=== PATIENT | male | born 1985 | race Caucasian/White ===

== ENCOUNTER 2023-06-30 02:54 | Emergency (ER) | payer SELFPAY ==
[2023-06-30 02:56] VITALS: BP 152/101; PULSE 80; RESP 20; O2SAT 95
--- NOTE | 2023-06-30 03:04 | CTR_ITS ---
PROCEDURE INFORMATION: Exam: CT Head Without Contrast Exam date and time: 06/30/2023 3:21 AM Age: 38 years old Clinical indication: Injury or trauma; Blunt trauma (contusions or hematomas); Patient HX: EMS arrival from bar for fall. Patient fell face first striking head onto concrete floor. Patient acutely intoxicated, non verbal, and minimally responsive. ; Additional info: Fall/ams TECHNIQUE: Imaging protocol: Computed tomography of the head without contrast. Radiation optimization: All CT scans at this facility use at least one of these dose optimization techniques: automated exposure control; mA and/or kV adjustment per patient size (includes targeted exams where dose is matched to clinical indication); or iterative reconstruction. REPORTING DATA: Count of CT and Cardiac NM exams in prior 12 months: This patient has received 0 known CTs and 0 known cardiac nuclear medicine studies in the 12 months prior to the current study. COMPARISON: No relevant prior studies available. RADIATION DOSE METRICS: Total DLP (mGy-cm): 1117.59 FINDINGS: Brain: There is no evidence of acute parenchymal hemorrhage, extra-axial collection, or acute infarction. There is no mass effect, midline shift, or downward herniation. There is a prominent cisterna magna noted. Cerebral ventricles: No ventriculomegaly. Paranasal sinuses: There is mild paranasal sinus mucosal thickening. Mastoid air cells: Visualized mastoid air cells are well aerated. Bones/joints: Unremarkable. No acute fracture. Soft tissues: Unremarkable. CT/CT head wo con* [id number] IMPRESSION: No evidence of acute intracranial process.
--- NOTE | 2023-06-30 03:04 | CTR_ITS ---
PROCEDURE INFORMATION: Exam: CT Cervical Spine Without Contrast Exam date and time: 06/30/2023 3:24 AM Age: 38 years old Clinical indication: Injury or trauma; Blunt trauma; Patient HX: EMS arrival from bar for fall. Patient fell face first striking head onto concrete floor. Patient acutely intoxicated, non verbal, and minimally responsive. ; Additional info: Fall/ams TECHNIQUE: Imaging protocol: Computed tomography of the cervical spine without contrast. Radiation optimization: All CT scans at this facility use at least one of these dose optimization techniques: automated exposure control; mA and/or kV adjustment per patient size (includes targeted exams where dose is matched to clinical indication); or iterative reconstruction. REPORTING DATA: Count of CT and Cardiac NM exams in prior 12 months: This patient has received 0 known CTs and 0 known cardiac nuclear medicine studies in the 12 months prior to the current study. COMPARISON: CT head wo con* [id number] 06/30/2023 3:21 AM RADIATION DOSE METRICS: Total DLP (mGy-cm): 536.77 FINDINGS: Bones/joints: No acute fracture. Normal alignment. There is minimal multilevel spondylosis. C2-C3: No significant disc bulge or herniation. No severe spinal canal stenosis. No significant neural foraminal narrowing. C3-C4: No significant disc bulge or herniation. No severe spinal canal stenosis. No significant neural foraminal narrowing. C4-C5: No significant disc bulge or herniation. No severe spinal canal stenosis. No significant neural foraminal narrowing. C5-C6: No significant disc bulge or herniation. No severe spinal canal stenosis. No significant neural foraminal narrowing. C6-C7: No significant disc bulge or herniation. No severe spinal canal stenosis. No significant neural foraminal narrowing. C7-T1: No significant disc bulge or herniation. No severe spinal canal stenosis. No significant neural foraminal narrowing. Lungs: Lung apices are normal. Soft tissues: Unremarkable. CT/CT cervical spin wo con* [id number] IMPRESSION: No acute findings.
[2023-06-30 03:26] LABS: Basophils # 0.1 10^3/uL (0.0-0.1); Basophils % 0.6 %; Eosinophils # 0.2 10^3/uL (0.0-0.8); Eosinophils % 2.3 %; Hematocrit 48.9 % (37-53); Mean Corpuscular HGB Conc 33.9 g/dL (30-55); Mean Corpuscular Hemoglobin 31.2 pg (27-33); Mean Corpuscular Volume 91.9 fl (82-101); Mean Platelet Volume 11.8 fL (7.4-10.4); Monocytes # 1.2 10^3/uL (0.2-0.9); Monocytes % 14.5 %; Neutrophils # 4.58 10^3/uL (1.8-7.7); Neutrophils % 57.2 %; Nucleated Red Blood Cells % 0 %; Platelet Count 314 10^3/cmm (157-399); Red Blood Count 5.32 10^6/uL (3.85-5.65); Red Cell Distribution Width 13.2 % (12.1-15.1)
[2023-06-30 03:34] VITALS: BP 115/72; PULSE 64; RESP 16; O2SAT 94
[2023-06-30 03:51] LABS: Alanine Aminotransferase 31 U/L (0-41); Albumin Level 4.8 g/dL (3.5-5.2); Alkaline Phosphatase 111 U/L (40-130); Anion Gap 15.3 (5-19); Aspartate Amino Transferase 38 U/L (0-40); Blood Urea Nitrogen 8 mg/dL (6-20); Calcium 9.3 mg/dL (8.5-10.5); Carbon Dioxide 29 mmol/L (22-29); Chloride 94 mmol/L (98-107); Globulin 3.2 g/dL (1.3-4.6); Glomerular Filtration Rate 107.1 mL/min (90-130); Glucose 116 mg/dL (65-115); Osmolality Calculated 277 mOsm/kg (285-295); Potassium 4.3 mmol/L (3.5-5.1); Sodium 134 mmol/L (136-145); Total Bilirubin 1.1 mg/dL (0.15-1.2)
[2023-06-30 03:54] LABS: Alcohol Level 415 mg/dL (0-10)
[2023-06-30 04:48] VITALS: BP 141/96; RESP 16; O2SAT 98
--- NOTE | 2023-06-30 05:20 | W.ED.ALCOHOL ---
Documented by User: Karlo Cervantes MD 07/25/23 07:42 HPI - Alcohol General: Chief Complaint: Alcohol Stated Complaint: fall Time Seen by Provider: 06/30/23 03:04 History of Present Illness: 38-year-old male presents to the emergency department via EMS personnel. EMS personnel state the patient was at a local drinking establishment when he started to leave he tripped over a rug by the front door falling out the door and onto the concrete pad hitting his head. He is extremely intoxicated and responsive to noxious stimuli only. Review of Systems General: Reports: ROS unobtainable due to medical condition and ROS unobtainable due to mental status Physical Exam Narrative: EXAM NARRATIVE: Constitutional: the patient appears well nourished and of normal development. Vital signs as documented. No acute distress at present. Responsive to noxious stimuli only Head, eyes, ears, nose, mouth, throat: Normocephalic, atraumatic. Pupils-equal, round, reactive to light. No scleral icterus. Normal-appearing external ears. Normal appearing nasal turbinates, no drainage. No obvious oral lesions, posterior oropharynx without erythema or exudates. Neck: Supple, trachea is midline, no lymphadenopathy, no jugular venous distension, thyromegaly, or carotid bruits. Carotid upstrokes are brisk bilaterally. Lungs: clear to auscultation to all lung smith. Symmetrical rise and fall of chest, no obvious signs of increased work of breathing at present. Cardiac: Regular rate and rhythm, positive S1, S2. No murmurs, rubs or gallops that I can appreciate Abdomen: Soft, non-tender to palpation, normal active bowel sounds to all quadrants. No palpable masses, no organomegaly and abdominal bruits. Extremities: 2+ pulses in the upper extremities that are equal bilaterally, 2+ pulses in the lower extremities that are equal bilaterally. Non-edematous. Moves all extremities well, sensation to all extremities are noted. Skin: Warm, dry, intact. Course Vital Signs: Vital signs: Vital Signs Pulse Rate 64 06/30/23 03:34 Respiratory Rate 16 06/30/23 06:53 Blood Pressure 121/85 06/30/23 06:53 Pulse Oximetry 95 06/30/23 06:53 Oxygen Delivery Me thod Room Air 06/30/23 03:34 MDM - Alcohol Medical Decision Making Physical exam completed and documented, I will obtain a CBC, CMP alcohol level provide him IV fluid rehydration as well as a banana bag. Lab Data I reviewed the patient's lab results. 06/30/23 03:00 06/30/23 03:00 Radiology Impressions Cervical Spine CT 06/30/23 03:04 IMPRESSION: No acute findings. Head CT 06/30/23 03:04 IMPRESSION: No evidence of acute intracranial process. Laboratory Results WBC 8.00 10^3/uL (3.29-11.43) 06/30/23 03:00 RBC 5.32 10^6/uL (3.85-5.65) 06/30/23 03:00 Hgb 16.60 g/dL (11.27-16.99) 06/30/23 03:00 Hct 48.9 % (37-53) 06/30/23 03:00 MCV 91.9 fl (82-101) 06/30/23 03:00 MCH 31.2 pg (27-33) 06/30/23 03:00 MCHC 33.9 g/dL (30-55) 06/30/23 03:00 RDW 13.2 % (12.1-15.1) 06/30/23 03:00 Plt Count 314 10^3/cmm (157-399) 06/30/23 03:00 MPV 11.8 fL (7.4-10.4) H 06/30/23 03:00 Neut % (Auto) 57.2 % 06/30/23 03:00 Lymph % (Auto) 25.0 % 06/30/23 03:00 [place] % (Auto) 14.5 % 06/30/23 03:00 Eos % (Auto) 2.3 % 06/30/23 03:00 Baso % (Auto) 0.6 % 06/30/23 03:00 Neut # (Auto) 4.58 10^3/uL (1.8-7.7) 06/30/23 03:00 Lymph # (Auto) 2.0 10^3/uL (0.8-4.8) 06/30/23 03:00 [place] # (Auto) 1.2 10^3/uL (0.2-0.9) H 06/30/23 03:00 Eos # (Auto) 0.2 10^3/uL (0.0-0.8) 06/30/23 03:00 Baso # (Auto) 0.1 10^3/uL (0.0-0.1) 06/30/23 03:00 Nucleated RBC % (auto) 0 % 06/30/23 03:00 Nucleated RBCs # 0.0 /100WBC 06/30/23 03:00 Sodium 134 mmol/L (136-145) L 06/30/23 03:00 Potassium 4.3 mmol/L (3.5-5.1) 06/30/23 03:00 Chloride 94 mmol/L (98-107) L 06/30/23 03:00 Carbon Dioxide 29 mmol/L (22-29) 06/30/23 03:00 Anion Gap 15.3 (5-19) 06/30/23 03:00 BUN 8 mg/dL (6-20) 06/30/23 03:00 Creatinine 0.8 mg/dL (0.7-1.2) 06/30/23 03:00 GFR Calculation 107.1 mL/min (90-130) 06/30/23 03:00 Glucose 116 mg/dL (65-115) H 06/30/23 03:00 Calculated Osmolality 277 mOsm/kg (285-295) L 06/30/23 03:00 Calcium 9.3 mg/dL (8.5-10.5) 06/30/23 03:00 Total Bilirubin 1.1 mg/dL (0.15-1.2) 06/30/23 03:00 AST 38 U/L (0-40) 06/30/23 03:00 ALT 31 U/L (0-41) 06/30/23 03:00 Alkaline Phosphatase 111 U/L (40-130) 06/30/23 03:00 Total Protein 8.0 g/dL (6.6-8.7) 06/30/23 03:00 Albumin 4.8 g/dL (3.5-5.2) 06/30/23 03:00 Globulin 3.2 g/dL (1.3-4.6) 06/30/23 03:00 Ethyl Alcohol 415 mg/dL (0-10) H* 06/30/23 03:00 All radiology interpretation(s) finalized by discharge Discharge Plan Discharge Patient Disposition: Home Clinical Impression: Alcoholic intoxication Condition: Stable Discharge Orders: Discharge ED (Routine); Ordered 06/30/23 Ordered By: Anabell Wu Discharge Diet: Advance as tolerated Discharge Activity: Resume usual activity Patient Instructions: Alcohol Intoxication (ED) Coding Level of Care Code ED Control System Computer Scientist for Chg Fwd Documented by User: Anabell Wu MD 06/30/23 07:00 HPI - Alcohol General: Chief Complaint: Alcohol Stated Complaint: fall Time Seen by Provider: 06/30/23 03:04 Course Vital Signs: Vital signs: Vital Signs Pulse Rate 64 06/30/23 03:34 Respiratory Rate 16 06/30/23 06:53 Blood Pressure 121/85 06/30/23 06:53 Pulse Oximetry 95 06/30/23 06:53 Oxygen Delivery Me thod Room Air 06/30/23 03:34 MDM - Alcohol Medical Decision Making Physical exam completed and documented, I will obtain a CBC, CMP alcohol level provide him IV fluid rehydration as well as a banana bag. Patient presents here with alcohol intoxication. He is now awake and alert ambulatory he is stable for discharge. Lab Data 06/30/23 03:00 06/30/23 03:00 Radiology Impressions Cervical Spine CT 06/30/23 03:04 IMPRESSION: No acute findings. Head CT 06/30/23 03:04 IMPRESSION: No evidence of acute intracranial process. Laboratory Results WBC 8.00 10^3/uL (3.29-11.43) 06/30/23 03:00 RBC 5.32 10^6/uL (3.85-5.65) 06/30/23 03:00 Hgb 16.60 g/dL (11.27-16.99) 06/30/23 03:00 Hct 48.9 % (37-53) 06/30/23 03:00 MCV 91.9 fl (82-101) 06/30/23 03:00 MCH 31.2 pg (27-33) 06/30/23 03:00 MCHC 33.9 g/dL (30-55) 06/30/23 03:00 RDW 13.2 % (12.1-15.1) 06/30/23 03:00 Plt Count 314 10^3/cmm (157-399) 06/30/23 03:00 MPV 11.8 fL (7.4-10.4) H 06/30/23 03:00 Neut % (Auto) 57.2 % 06/30/23 03:00 Lymph % (Auto) 25.0 % 06/30/23 03:00 [place] % (Auto) 14.5 % 06/30/23 03:00 Eos % (Auto) 2.3 % 06/30/23 03:00 Baso % (Auto) 0.6 % 06/30/23 03:00 Neut # (Auto) 4.58 10^3/uL (1.8-7.7) 06/30/23 03:00 Lymph # (Auto) 2.0 10^3/uL (0.8-4.8) 06/30/23 03:00 [place] # (Auto) 1.2 10^3/uL (0.2-0.9) H 06/30/23 03:00 Eos # (Auto) 0.2 10^3/uL (0.0-0.8) 06/30/23 03:00 Baso # (Auto) 0.1 10^3/uL (0.0-0.1) 06/30/23 03:00 Nucleated RBC % (auto) 0 % 06/30/23 03:00 Nucleated RBCs # 0.0 /100WBC 06/30/23 03:00 Sodium 134 mmol/L (136-145) L 06/30/23 03:00 Potassium 4.3 mmol/L (3.5-5.1) 06/30/23 03:00 Chloride 94 mmol/L (98-107) L 06/30/23 03:00 Carbon Dioxide 29 mmol/L (22-29) 06/30/23 03:00 Anion Gap 15.3 (5-19) 06/30/23 03:00 BUN 8 mg/dL (6-20) 06/30/23 03:00 Creatinine 0.8 mg/dL (0.7-1.2) 06/30/23 03:00 GFR Calculation 107.1 mL/min (90-130) 06/30/23 03:00 Glucose 116 mg/dL (65-115) H 06/30/23 03:00 Calculated Osmolality 277 mOsm/kg (285-295) L 06/30/23 03:00 Calcium 9.3 mg/dL (8.5-10.5) 06/30/23 03:00 Total Bilirubin 1.1 mg/dL (0.15-1.2) 06/30/23 03:00 AST 38 U/L (0-40) 06/30/23 03:00 ALT 31 U/L (0-41) 06/30/23 03:00 Alkaline Phosphatase 111 U/L (40-130) 06/30/23 03:00 Total Protein 8.0 g/dL (6.6-8.7) 06/30/23 03:00 Albumin 4.8 g/dL (3.5-5.2) 06/30/23 03:00 Globulin 3.2 g/dL (1.3-4.6) 06/30/23 03:00 Ethyl Alcohol 415 mg/dL (0-10) H* 06/30/23 03:00 Discharge Plan Discharge Patient Disposition: Home Clinical Impression: Alcoholic intoxication Condition: Stable Discharge Orders: Discharge ED (Routine); Ordered 06/30/23 Ordered By: Anabell Wu Discharge Diet: Advance as tolerated Discharge Activity: Resume usual activity Patient Instructions: Alcohol Intoxication (ED) Coding Level of Care Code ED Control System Computer Scientist for Ti Ballesteros
[2023-06-30 05:53] VITALS: BP 126/78
--- NOTE | 2023-06-30 05:54 | PC.NURSE ---
Patient continues to remove vitals equipment. Pt still intoxicated and hostile.
[2023-06-30 06:00] VITALS: BP 128/68
[2023-06-30 06:53] VITALS: BP 121/85; RESP 16; O2SAT 95
== END 2023-06-30 06:54 | disposition home or self-care (01) ==
PROVIDERS: Internal Medicine; Emergency Provider Emergency Medicine
DX: F10.920 Alcohol use, unspecified with intoxication, uncomplicated (principal); Y90.8 Blood alcohol level of 240 mg/100 ml or more
CPT/HCPCS: 70450; 72125; 80053; 80307; 85025; 99284; J7120